=== PATIENT | male | born 2000 | race Two or more races ===

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

== ENCOUNTER 2021-08-27 09:57 | Emergency (ER) | payer MEDICAID ==
[~2021-08-27] VITALS: Ht 180.3 cm; Wt 104.3 kg
[2021-08-27 10:48] VITALS: BP 156/74
[2021-08-27] MEDS ORDERED: KETOROLAC TROMETH 60MG/2ML VIAL IM ONE (12:00)
[2021-08-27] MEDS ORDERED: CYCL-837 PO (12:01)
[2021-08-27] MEDS ORDERED: IBUP800T27 PO (12:01)
== END 2021-08-27 12:43 | disposition home or self-care (01) ==
LOC: ER 09:57
DX: S29.012A Strain of muscle and tendon of back wall of thorax, initial encounter (principal); M41.9 Scoliosis, unspecified; X58.XXXA Exposure to other specified factors, initial encounter; Y93.89 Activity, other specified; Y92.89 Other specified places as the place of occurrence of the external cause; Y99.8 Other external cause status
CPT/HCPCS: 72070; 96372; 99283; J1885

== ENCOUNTER 2022-02-17 03:23 | Emergency (ER) | payer MEDICAID ==
[~2022-02-17] VITALS: Ht 177.8 cm; Wt 102.0 kg
[~2022-02-17 03:23] MED LIST: CYCL-837 PO; IBUP800T27 PO
[2022-02-17 03:29] VITALS: BP 145/88
[2022-02-17] MEDS ORDERED: IBUP800T27 PO (05:02)
[2022-02-17] MEDS ORDERED: CIPR1SUS8 OT (05:02)
[2022-02-18] MEDS ORDERED: AMOX-277 PO (21:05)
[2022-02-18] MEDS ORDERED: HYDR-4798 PO (21:05)
== END 2022-02-17 05:09 | disposition home or self-care (01) ==
LOC: ER 03:27
DX: H60.92 Unspecified otitis externa, left ear (principal)

== ENCOUNTER 2023-07-03 11:09 | Emergency (ER) | payer MEDICAID ==
[~2023-07-03] VITALS: Ht 177.8 cm; Wt 106.4 kg
[~2023-07-03 11:09] MED LIST changes: +AMOX875T4 PO; +CIPR1SUS8 OT; +HYDR-4798 PO; +IBUP-1456 PO; -IBUP800T27 PO
[2023-07-03 11:45] VITALS: BP 133/79; PULSE 107; RESP 18; TEMP 97.1; O2SAT 96
[2023-07-03] MEDS ORDERED: AUG875T PO (12:00)
[2023-07-03] MEDS: TETANUS-DIPTH-ACEL PERTUSSIS 0.5ML SYR Tdap IM ONE (12:03)
== END 2023-07-03 12:15 | disposition home or self-care (01) ==
LOC: ER 11:09
DX: S81.832A Puncture wound without foreign body, left lower leg, initial encounter (principal); S81.852A Open bite, left lower leg, initial encounter; W54.0XXA Bitten by dog, initial encounter; Y93.89 Activity, other specified; Y92.89 Other specified places as the place of occurrence of the external cause; Y99.8 Other external cause status
CPT/HCPCS: 90471; 90715

== ENCOUNTER 2025-02-06 20:07 | Emergency (ER) | payer MEDICAID ==
[~2025-02-06] VITALS: Ht 177.8 cm; Wt 105.3 kg
[~2025-02-06 20:07] MED LIST changes: +AUG875T PO
--- NOTE | 2025-02-06 22:00 | ED.PDOC ---
SOB-HPI HPI Comments 24-year-old male who presents to the ED with complaint of flu-like symptoms. Patient states he has been having sore throat, left ear pain, stuffy nose and cough for the past six days. Patient stated he started to have pain radiating to the right ear and came to the ED for evaluation. Patient otherwise denies any recent travel or sick contacts. Patient in the ED has noted blood pressure of 147/92 with otherwise stable vitals in the ED. Patient otherwise denies chest pain shortness of breath nausea vomiting diarrhea or associated symptoms Chief Complaint: Flu like Time Seen by MD: 21:57 Primary Care Provider: UNKNOWN Information Source: Patient Mode of Arrival: Ambulatory Past Medical History PAST MEDICAL HISTORY: Denies Surgical History: Denies all surgeries Family History Family History: Reviewed,noncontributory to illness Social History Smoker: Non-Smoker Alcohol: Denies ETOH Use Drugs: Denies Drug Use Lives In: Home Constitutional: reports: diaphoresis, fatigue; denies: chills, fever, malaise, sweats, weakness, others EENTM: reports: ear pain, throat pain; denies: blurred vision, double vision, ear bleeding, ear discharge, ear drainage, ear ringing, eye pain, eye redness, hearing loss, mouth pain, mouth swelling, nasal discharge, nose bleeding, nose congestion, nose pain, photophobia, tearing, throat swelling, voice changes, others Respiratory: reports: cough; denies: hemoptysis, orthopnea, SOB at rest, shortness of breath, SOB with excertion, stridor, wheezing, others Cardiovascular: denies: chest pain, dizzy spells, diaphoresis, Dyspnea on exertion, edema, irregular heart beat, left arm pain, lightheadedness, palpitations, PND, syncope, others Gastrointestinal: denies: abdomen distended, abdominal pain, blood streaked bowels, constipated, diarrhea, dysphagia, difficulty swallowing, hematemesis, m juhi, nausea, poor appetite, poor fluid intake, rectal bleeding, rectal pain, vomiting, others Genitourinary: denies: burning, dysuria, flank pain, frequency, hematuria, incontinence, penile discharge, penile sore, pain, testicle pain, testicle swelling, urgency, others Neurological: denies: dizziness, fainting, headache, left sided numbness, left sided weakness, numbness, paresthesia, pre-existing deficit, right sided numbness, right sided weakness, seizure, speech problems, tingling, tremors, weakness, others Musculoskeletal: denies: back pain, gout, joint pain, joint swelling, muscle pain, muscle stiffness, neck pain, others Integumetry: denies: bruises, change in color, change in hair/nails, dryness, laceration, lesions, lumps, rash, wounds, others Allergic/Immunocompromised: denies: Difficulty Healing, Frequent Infections, Hives, Itching, others Hematologic/Lymphatic: denies: anemia, blood clots, easy bleeding, easy bruising, swollen glands, others Endocrine: denies: excessive hunger, excessive sweating, excessive thirst, excessive urination, flushing, intolerance to cold, intolerance to heat, unexplained weight gain, unexplained weight loss, others Psychiatric: denies: anxiety, bipolar disorder, depression, hopeless, panic disorder, schizophrenia, sleepless, suicidal, others All Other Systems: Reviewed and Negative Physical Exam General Appearance: No Apparent Distress, Normal HEENT: Pharyngeal Erythema, Other (Bilateral ear turbinates noted erythema) Neck: Full Range of Motion, Non-Tender, Normal, Normal Inspection Respiratory: Chest Non-Tender, Lungs Clear, No Accessory Muscle Use, No R espiratory Distress, Normal Breath Sounds Cardiovascular: No Edema, No JVD, No Murmur, No Gallop, Normal Peripheral Pulses, Regular Rate/Rhythm Breast Exam: Deferred Gastrointestinal: No Organomegaly, Non Tender, No Pulsatile Mass, Normal Bowel Sounds, Soft Genitalia: Deferred Pelvic: Deferred Rectal: Deferred Extremities: No calf tenderness, Normal capillary refill, Normal inspection, Normal range of motion, Non-tender, No pedal edema Musculoskeletal : Apperance: Normal Neurologic: Alert, senior electronics design engineer II-XII nml as Tested, No Motor Deficits, Normal Affect, Normal Mood, No Sensory Deficits Cerebellar Function: Normal Reflexes: Normal Skin: Dry, Normal Color, Warm Lymphatic: No Adenopathy Was a procedure done? Was a procedure done?: No Differential Dx Differential Diagnosis: Bronchitis, Pneumonia, Sinusitis, Otitis Media, Pharyngitis, URI Comments Otitis media, otitis externa, viral syndrome, influenza a and B, COVID X-Ray, Labs, Meds, VS Vital Signs Date Time Temp Pulse Resp B/P (MAP) Pulse Ox O2 Delivery O2 Flow Rate FiO2 02/06/25 20:08 99.3 71 17 147/92 99 99.3 X-Ray, Labs, Meds, VS Comment Imaging was reviewed by this provider, there is no obvious pathological or acute disease process. Pending radiology review Labs were reviewed by this provider, no abnormalities Vital signs reviewed by this provider, clinically stable Time of 1ST Reevaluation: 21:30 Reevaluation 1ST: Unchanged Patient Education/Counseling: Diagnosis, Treatment, Need For Follow Up (Follow up with PCP in the next 2-3 days. Return to the emergency department if symptoms worsen.) Family Education/Counseling: No Family Present SEPSIS Sepsis Screen Date sepsis recognized/suspect: Feb 06, 2025 Time Sepsis recognized/suspect: 2207 Recent Procedure: No On Antibiotic Therapy: No Respiratory Rate >20: No Heart Rate >90: No Temp<36 C (96.8 F) or >38.3 C: No SBP <90 or MAP <65 mmHG: No New Acute Mental Status Change: No Is the patient on CPAP, BIPAP,: No Vital Signs Date Time Temp Pulse Resp B/P (MAP) Pulse Ox O2 Delivery O2 Flow Rate FiO2 02/06/25 20:08 99.3 71 17 147/92 99 99.3 Departure 1 Departure Time of Disposition: 22:10 Impression: Primary Impression: Otitis media Qualified Codes: H66.003 - Acute suppurative otitis media without spontaneou s rupture of ear drum, bilateral Disposition: HOME / SELF CARE / HOMELESS Condition: Fair e-Prescriptions Promethazine-Dm (Promethazine Dm 6.25-15 mg/5Ml) 1 Kim Kim 5 ML PO TID PRN, #240 ML Prov: FINA VELIZ STUFFING MACHINE OPERATOR 02/06/25 Ibuprofen Micronized (Ibuprofen) 800 Mg Tab 800 MG PO TID PRN, #30 TAB Prov: FINA VELIZ STUFFING MACHINE OPERATOR 02/06/25 Amoxicillin & Pot Clavulanate (AUGMENTIN TABLET) 875 Mg Tb 875 MG PO BID for 7 Days, #14 TAB Prov: FINA VELIZ STUFFING MACHINE OPERATOR 02/06/25 Discharged With: Self Critical Care Note Critical Care Time?: No Stability Stability form required: No Heart Score Heart Score: Heart Score Response (Comments) Value History N/A 0 EKG N/A 0 Age N/A 0 Risk Factors N/A 0 Troponin N/A 0 Total 0 I personally scribed for FINA VELIZ (MANAS) on 02/06/25 at 21:59. Electronically submitted by Fracisco Mena ([facility] [place]). FINA VELIZ Feb 06, 2025 21:59
[2025-02-06] MEDS ORDERED: AUG875T PO (22:11)
[2025-02-06] MEDS ORDERED: IBUP-1455 PO (22:11)
[2025-02-06] MEDS ORDERED: PROM1SOL4 PO (22:11)
[2025-02-06] MEDS: KETOROLAC TROMETH 30 MG/ML 1ML VIAL IM ONE (22:31)
[2025-02-06 22:47] VITALS: BP 136/88; PULSE 74; RESP 16; TEMP 99.2; O2SAT 97
== END 2025-02-06 22:56 | disposition home or self-care (01) ==
LOC: ER 20:07
DX: H66.93 Otitis media, unspecified, bilateral (principal)
CPT/HCPCS: 96372 ×2; 99283; J1885 ×2